=== PATIENT | male | born 1970 | race Caucasian/White ===

== ENCOUNTER 2024-06-26 04:12 | Emergency (ER) | payer MEDICARE, MEDICAID, SELFPAY ==
[2024-06-26] VITALS (45 sets, daily range): BP systolic 91–153; BP diastolic 53–104; PULSE 44–117; RESP 9–87; TEMP 36.6–37.7; O2SAT 88–100
--- NOTE | ~2024-06-26 | XR_ITS ---
EXAMINATION: XR chest ET placement, XR abdomen gastric tube insert DATE: 06/26/2024 05:14 (accession [id number]), 06/26/2024 05:13 (accession [id number]) INDICATION: Endotracheal tube placement. Nasogastric tube placement. TECHNIQUE: 1. AP view of the chest was obtained. 2. AP view of the abdomen was obtained. COMPARISON: None FINDINGS: Chest: Endotracheal tube tip 5.6 cm above the dusty. There are airspace opacities in the left perihilar reg ion and right upper lung zone. The lateral left lower lung zone is excluded from the [id number]. N o pneumothorax or evident pleural effusion. Heart size is normal. Spinal stimulator lead projects ove r the central canal of the lower thoracic spine. Abdomen : Nasogastric tube tip in proximal side port in the body of the stomach. No dilated loops of gas-filled bowel movement visualized upper abdomen. IMPRESSION: 1. Nasogastric tube 5.6 cm above the dusty. Consider advancement by 3 cm. 2. Nasogastric tube in stomach. 3. Opacities in the right upper lung zone and left perihilar region which could represent atelectasis or pneumonia. Reviewed, dictated and finalized at location A. [facility] IMPRESSION: 1. Nasogastric tube 5.6 cm above the dusty. Consider advancement by 3 cm. 2. Nasogastric tube in stomach. 3. Opacities in the right upper lung zone and left perihilar region which could represent atelectasis or pneumonia.
--- NOTE | ~2024-06-26 | CT_ITS ---
EXAMINATION: CT brain wo con DATE: 06/26/2024 04:37 INDICATION: Seizure. Unresponsive with right gaze deviation. TECHNIQUE: Computed tomography (CT) of the head was performed without intravenous contrast. Sagittal and coronal reconstructions were performed. The mA was adjusted according to patient size. Iterative reconstruction technique was employed. The dose-length product was 832.33 mGy-cm. COMPARISON: None FINDINGS: No acute intracranial hemorrhage, acute infarction or abnormal extra axial fluid collection. Symmetri c prominence of the sulci and subarachnoid spaces overlying the convexities consistent with mild age- appropriate diffuse cerebral volume loss. Ventricles are normal and symmetric. No mass/mass effect. Mucosal thickening in the paranasal sinuses. The orbits and mastoid air cells are normal. IMPRESSION: 1. No acute intracranial process. Reviewed, dictated and finalized at location A. RALIZATION EXAMINER
[2024-06-26] MEDS: LORazepam INJ (*CRX) 2 MG/ML VIAL 1 MG IV PUSH (04:12)
--- NOTE | 2024-06-26 04:13 | PC.NURSE ---
EMS REPORTS THAT PATIENT WAS FOUND ON THE FLOOR SHAKING BY FAMILY MEMBER. FAMILY MEMBER FOUND PATIENT SHAKING ON THE FLOOR.
--- NOTE | 2024-06-26 04:14 | PC.NURSE ---
PATIENT TRANSPORTED TO CT BY ERWIN BAEZA, [facility], [facility]
--- NOTE | 2024-06-26 04:21 | PC.NURSE ---
LAB AND RT ARE AT THE BEDSIDE
--- NOTE | 2024-06-26 04:24 | PC.NURSE ---
PATIENT RETURNED TO ROOM. AGITATED. TRYING TO ROLL OVER. DOES NOT FOLLOW VERBAL COMMANDS
[2024-06-26] MEDS: ETOMIDATE 20 MG/10 ML AMPUL 26 MG IV PUSH (04:33)
[2024-06-26] MEDS: SUCCINYLCHOLINE CHLORIDE 20 MG/ML 10 ML VIAL 180 MG IV PUSH (04:34)
--- NOTE | 2024-06-26 04:35 | PC.NURSE ---
INTUBATION SUCCESSFUL BY DR CHEEK. ETT 7.5. 23 AT THE TEETH
[2024-06-26] MEDS: PROPOFOL IV EMULSION 100 ML 3.78 MG IV CONT (04:40)
--- NOTE | 2024-06-26 04:40 | ECG_ITS ---
Test Date: 2024-06-26 05:57:39 Measurements Intervals [place] Rate: 75 P: 55 [place]: 160 QRS: 59 QRSD: 101 T: 53 QT: 433 QTc: 486 Interpretive Statements SINUS RHYTHM CANNOT R/O SEPTAL INFARCT, AGE INDETERMINATE PROLONGED QT INTERVAL ABNORMAL ECG No previous ECG available for comparison Electronically Signed On 06-26-2024 07:57:58 [employer] by Karsten Clark D.O.
[2024-06-26] MEDS: MIDAZOLAM HCL (*CRX) 2 MG/2 ML VIAL IV PUSH (04:52)
--- NOTE | 2024-06-26 05:01 | ED_ITS ---
HPI - Altered Mental Status General Chief Complaint: Altered Mental Status Stated Complaint: seizure Time Seen by Provider: 06/26/24 04:39 Source: EMS Mode of arrival: EMS Limitations: altered mental status and clinical condition History of Present Illness HPI narrative: this is a 54-year-old male brought in via EMS from home after he had a witnessed seizure event and was unresponsive upon arrival to the emergency department patient was sent to the CT scanner and had a scan of the brain which showed no acute abnormalities. The patient was awake but unable to adequately verbalize. MD complaint: altered mental status and other Onset (ago): hour(s) Time: 04:00 Severity: severe Consistency of symptoms: constant Related Data Allergies Allergy/AdvReac Type Severity Reaction Status Date / Time Unable to Assess Allergy Verified 06/26/24 05:53 Review of Systems 2 Review of Systems: All systems reviewed & are unremarkable except as noted in HPI and below Exam 2 Const: General: confusion and ill appearing Nutritional Appearance: obese Eyes: Conjunctivae: conjunctivae normal Neck: Neck: normal visual inspection and no lymphadenopathy Chest: Chest palpation & inspection: normal inspection of the chest Resp: Effort & Inspection: normal respiratory effort Auscultation: clear to auscultation bilaterally Cardio: Rate: regular rate Rhythm: regular rhythm GI: GI Palp: Yes Soft to palpation Auscultation: normal bowel sounds : General: Yes bladder normal to palpation Skin: General skin exam: normal color Rashes: no rashes Wounds: no wounds Neuro: General: moves all extremities Other: altered mental status Extrem: General: no pedal edema Course Course Emergency Course: Patient brought in via EMS with having seizure activity at home patient received Versed per EMS patient arrived to the emergency department was not having a seizure at that time was alert but not responding appropriately to verbal commands. Patient was sent to the CT scanner CT brain was performed which showed no acute intracranial abnormalities. Patient subsequently is intubated. [place] [id number] EKG showed normal sinus rhythm troponins negative ammonia was 24 alcohol level was normal. Patient started on IV fluids currently on propofol drip for sedation on the ventilator. Procedures Intubation Intubation #1: Intubation Date: 06/26/24 Intubation Time: 04:00 sedative: Etomidate Mg Given: 26 paralytic: Succinylcholine Mg Given: 180 Laryngoscope: fiber optic video scope Assist Device Used: fiber optic device Tube Size (cm): 7.5 Method of Intubation: orotracheal Number of Attempts: 1 Tube Secured Depth (cm): 23 Tube Secured Location: teeth Tube Placement Confirmation: visualized tube passing through cords Patient Tolerated Procedure: well and no complications Intubation Complications: none MDM - Altered Mental Status Lab Data 06/26/24 04:40 06/26/24 04:40 Labs: Lab Results 06/26/24 Range/Units 04:40 WBC Pending RBC Pending Hgb Pending Hct Pending MCV Pending MCH Pending MCHC Pending RDW Pending Plt Count Pending MPV Pending Immature Gran % (Auto) Pending Neut % (Auto) Pending Lymph % (Auto) Pending Vernon % (Auto) Pending Eos % (Auto) Pending Baso % (Auto) Pending Lymph # (Auto) Pending Vernon # (Auto) Pending Eos # (Auto) Pending Baso # (Auto) Pending Abs Immat Gran (auto) Pending Absolute Neuts (auto) Pending Absolute Nucleated RBC Pending Nucleated RBC % Pending PT Pending INR Pending APTT Pending Sodium Pending Potassium Pending Chloride Pending Carbon Dioxide Pending Anion Gap Pending BUN Pending Creatinine Pending Estim Creat Clear Calc Pending Estimated GFR Pending Glucose Pending Calculated Osmolality Pending Lactic Acid Pending Calcium Pending Total Bilirubin Pending AST Pending ALT Pending Alkaline Phosphatase Pending Ammonia Pending Total Creatine Kinase Pending Troponin I Pending Total Protein Pending Albumin Pending TSH Pending Ethyl Alcohol Pending Critical Care Time Critical Care Time Critical Care Time: Yes Total Critical Care Time: 40 Discharge Plan Discharge Clinical Impression: Seizure, Acute alteration in mental status Patient Disposition: Acute Care Hospital Condition: Serious Patient Language: Citizen Of [place] Follow-up/Referrals: UNKNOWN,DOCTOR [Primary Care Provider] -
[2024-06-26 05:06] LABS: Hematocrit 41.3 % (40.0-54.0); Hemoglobin 12.6 g/dL (14.0-18.0); Mean Corpuscular HGB Conc 30.5 g/dL (32-36); Mean Corpuscular Hemoglobin 28.2 pg (27.0-31.0); Mean Corpuscular Volume 92.4 fL (78.0-102.0); Mean Platelet Volume 9.7 fl (8.7-11.0); Platelet Count Result 465 K/mm3 (150-420); Red Blood Count 4.47 M/mm3 (4.70-6.10); Red Cell Distribution Width 15.3 % (11.6-14.4)
[2024-06-26 05:12] LABS: Partial Thromboplastin Time 28.1 Sec (23.9-30.70); Prothrombin Time 11.4 Seconds (9.50-12.1)
[2024-06-26 05:13] LABS: White Blood Count 20.7 K/mm3 (4.8-10.8)
--- NOTE | 2024-06-26 05:15 | PC.NURSE ---
lab called with abnormal white count of 20. ERP informed
[2024-06-26 05:21] LABS: Lactic Acid Reflex 2.6 mmol/L (0.4-2.0)
[2024-06-26 05:24] LABS: Alanine Aminotransferase 23 U/L (16-63); Albumin Level 3.3 g/dL (3.4-5.0); Alkaline Phosphatase 102 U/L (46-116); Ammonia 24 umol/L (11-32); Anion Gap 8 mmol/L (4-12); Aspartate Amino Transferase 12 U/L (15-37); Bilirubin,Total 0.2 mg/dL (0.00-1.00); Blood Urea Nitrogen 14 mg/dL (7-18); Calcium 8.4 mg/dL (8.5-10.1); Carbon Dioxide 28 mmol/L (21-32); Chloride 99 mmol/L (98-108); Creatine Kinase 24 U/L (39-308); Estimated Glomerular Filt Rate > 60; Glucose 180 mg/dL (70-99); Osmolality Calculated 285 mOsm/kg (285-295); Sodium 135 mmol/L (136-145); Thyroid Stimulating Hormone 2.06 uIU/mL (0.36-3.74); Total Protein 9.4 g/dL (6.4-8.2); Troponin I 9.8 ng/L (0.00-60.4)
[2024-06-26 05:28] LABS: Ethanol < 3 mg/dL (0-6)
[2024-06-26] MEDS: SODIUM CHLORIDE 0.9% IV 1,000 ML 999 ML IV CONT ×2 (05:37→07:10)
[2024-06-26] MEDS: PROPOFOL IV EMULSION 100 ML 30.24 MG IV CONT ×3 (05:37→08:59)
--- NOTE | 2024-06-26 05:40 | PC.NURSE ---
SISTER AND NEPHEW IN WAITING ROOM. SISTER CAME BACK TO ROOM. UPDATED ON PT CONDITION AND PLAN OF CARE. RETURNED TO WAITING ROOM FOR WAN TO BE PALCED.
[2024-06-26 06:13] LABS: Base Excess ABG -5.1 mmol/L (0-2); HCO3 ABG 20.6 mmol/L (23-29); Oxygen Saturation ABG 93.1 % (95-97); Oxyhemoglobin 89.5 % (94-100); PCO2 ABG 40.4 mmHg (35-45); PO2 ABG 69.5 mmHg (80-90); pH ABG 7.33 (7.35-7.45)
[2024-06-26 06:15] LABS: SARS-CoV-2 RNA PCR Negative (Negative)
[2024-06-26 06:19] LABS: Device VENTILATOR; Site Drawn LEFT RADIAL
[2024-06-26 06:21] LABS: Influenza A QL RT-PCR Negative (Negative); Influenza B QL RT-PCR Negative (Negative); RSV RNA, RT-PCR Negative (Negative)
[2024-06-26 06:27] LABS: Arterial Blood Gas PEEP 5 cmH2O; Arterial Blood Gas Tidal Volume 550 ml; Arterial Blood Gas Vent Mode CMV; Arterial Blood Gas Ventilator rate 20 /MIN; Peak Inspiratory Pressure 1 cmH2O
[2024-06-26] MEDS: PIPERACILLN/TAZ 3.375GM/NS50ML 3.375 GM/50 ML BAG IVPB (06:30)
[2024-06-26 06:40] LABS: NT Pro B Type Natriuretic Pept 92 pg/mL (0-125)
--- NOTE | 2024-06-26 06:49 | ECG_ITS ---
Test Date: 2024-06-26 06:51:27 Measurements Intervals [place] Rate: 56 P: 38 [place]: 183 QRS: 59 QRSD: 97 T: 50 QT: 468 QTc: 455 Interpretive Statements SINUS BRADYCARDIA CANNOT R/O SEPTAL INFARCT, AGE INDETERMINATE BASELINE ARTIFACT- II, III ABNORMAL ECG Compared to ECG 06/26/2024 05:57:39 PROLONGED QT INTERVAL NO LONGER PRESENT Electronically Signed On 06-27-2024 06:34:24 [employer] by Karsten Clark D.O.
--- NOTE | 2024-06-26 06:50 | PC.NURSE ---
PATIENTHEART RADE DROPPED TO 43. DR CHEEK NOTIFIED. PLAN FOR EKG
[2024-06-26 07:00] LABS: Add Urine Microscopic? YES; Appearance Urine Clear (Clear); Bilirubin Urine Negative (Negative); Blood Urine Trace-intact (Negative); Color Urine Light Yellow (Yellow); Glucose Urine UA Negative (Negative); Ketones Urine Negative (Negative); Leukocyte Esterase Ur Negative LEU/UL (Negative); Nitrate Urine Negative (Negative); Protein Urine 1+ (Negative); Specific Grav Ur >= 1.030 (1.010-1.020); Urobilinogen Urine 0.2 mg/dL (0.2-1.0); pH Urine 5.5 (5.0-8.0)
--- NOTE | 2024-06-26 07:00 | PC.NURSE ---
REPORT GIVEN TO KRYS BAEZA
[2024-06-26 07:05] LABS: Amphetamine Screen Urine Negative (Negative); Barbiturate Screen Urine Negative (Negative); Benzodiazepines Screen Urine Positive (Negative); Cannabinoid Screen Urine Positive (Negative); Cocaine Screen Urine Negative (Negative); Methadone Screen Urine Negative (Negative); Opiate Screen Urine Negative (Negative); Phencyclidine Screen Urine Negative (Negative)
[2024-06-26 07:30] LABS: Band Neutrophils Percent 2 % (0-6); Basophils Percent Manual 1 % (0-1); Large Platelets Present; Lymphocytes Absolute Manual 1.65 K/mm3 (1.1-4.5); Lymphocytes Percent Manual 8 % (18-44); Monocytes Percent Manual 1 % (3-9); Neutrophils Absolute Manual 18.63 K/mm3 (1.3-6.7); Neutrophils Percent Manual 88 % (46-73); Platelet Estimate Increased (Adequate); Total Cells Counted 100
[2024-06-26 07:31] LABS: Atypical Lymphocytes Present; Schistocytes None Seen
[2024-06-26 07:35] LABS: Amorphous Sediment Urine Few; RBC Urine 0-2 /hpf (0-2)
[2024-06-26 07:36] LABS: Hyaline Casts Urine 20-29 /lpf
--- NOTE | 2024-06-26 07:36 | PC.NURSE ---
BLAS WAS PLACED BY ERWIN BAEZA AT 0555. INCORRECT TIME WAS CHARTED
[2024-06-26 07:56] LABS: Reflex Lactic Acid Yes or No Add Lactic
--- NOTE | 2024-06-28 13:49 | PC.NURSE ---
Preliminary blood culture report; no growth to date.
--- NOTE | 2024-06-29 12:50 | PC.NURSE ---
PRELIMINARY BLOOD CULTURE RESULTS: NO GROWTH TO DATE.
== END 2024-06-26 09:00 | disposition short-term general hospital (02) ==
PROVIDERS: Emergency Medicine; Emergency Provider Family Medicine
DX: R56.9 Unspecified convulsions (principal); R41.82 Altered mental status, unspecified; Z20.822 Contact with and (suspected) exposure to COVID-19
CPT/HCPCS: 31500; 36415; 36600; 70450; 80053; 80307; 81001; 82077; 82140; 82550; 82805; 83605; 83880; 84443; 84484; 85025; 85610; 85730; 87040; 87637; 93005; 96361; 96365; 96367; 96375; 99285; J0330; J2060; J2250; J2543; J2704; J7030